=== PATIENT | female | born 1960 | race Caucasian/White ===

== ENCOUNTER 2024-07-09 08:09 | Outpatient (AMB) | payer OTHER, SELFPAY ==
--- NOTE | 2024-07-09 08:15 | AM.OFFWIN_ITS ---
Intake Vital Signs 07/09/24 08:17 Weight 212 lb BP 110/72 Blood Pressure Location Lt brachial Position Sitting Pulse 64 Pulse Source Pulse Oximeter Temp 98.4 F Temp Source Oral Pulse Oximetry (%) 97 Oxygen Delivery Method Room Air Intake Visit Reasons: [employer] cold symptoms Intake Note: Patient here for throat pain when coughing, chest tightness/burning sensation that has been present for a couple of days. Patient Tobacco Use Status: Never used Tobacco Allergies Sulfa (Sulfonamide Antibiotics) Adverse Reaction (Intermediate, Verified 07/09/24 08:19) Swelling sulfamethoxazole [From Bactrim] Adverse Reaction (Mild, Verified 07/09/24 08:19) GI upset trimethoprim [From Bactrim] Adverse Reaction (Mild, Verified 07/09/24 08:19) GI upset Do you need a note to return to daycare/school/sports/work: Yes HPI HPI Comments History of Present Illness Details History - The patient is a 63-year-old female pr esenting with cough and chest heaviness starting yesterday. - Noticed heaviness in the chest and thr oat soreness, intensified by coughing. - Previously attempted relief with three Advil, with some notable improvement. - Cough persists despite using lozenges overnight and morning, providing minimal relief. - History of asthma managed with caffein e and occasional clinical interventions. - Utilizes an albuterol inhaler as neede d. - Reports seasonal allergies, infrequent use of Claritin. - Denies fever, sinus, head, or ear pain , not a current smoker - Denies history of asthma or COPD Physical Exam General: Cooperative, healthy appearing, comfortable and no acute distress Orientation/consciousness: Patient oriented x3 Limitations: No limitations Head: Normal to inspection Ears: Hearing grossly normal bilaterally, external ears normal and TM's normal bilaterally Nose: Normal external nose present, Normal nares present and No nasal discharge present Face and sinus: Normal facial exam and Yes sinuses nontender Mouth: Normal oral and palatal mucosa present and moist mucous membranes Throat: Yes tonsils normal, Yes uvula midline. Posterior oropharynx erythema with cobblestoning Eyes: Appearance normal, both eyes and all related structures Neck: Normal visual inspection Respiratory: Clear to auscultation bilaterally. Normal respiratory effort, able to speak in complete sentences, Actively coughing, no respiratory distress, not tachypneic, no tripod positioning and no use of accessory muscles Cardiovascular: Regular rate and rhythm. Normal S1 and S2 Skin: No rashes or lesions noted Neuro: Patient oriented x3 Extremities: Normal to inspection and Yes no clubbing, cyanosis or edema PFSH Social History Patient Tobacco Use Status: Never used Tobacco Review of Systems Const All systems reviewed & are unremarkable except as noted in HPI and below Physical Exam Vital Signs: Last Vital Signs Temp 98.4 F 07/09/24 08:17 Pulse 64 07/09/24 08:17 BP 110/72 07/09/24 08:17 Pulse Ox 97 07/09/24 08:17 Oxygen Delivery Method Room Air 07/09/24 08:17 Assessment & Plan Assessment & Plan (1) URI, acute: Code(s): J06.9 - Acute upper respiratory infection, unspecified Plan: VSS, pt well appearing and PE unremarkable. Likely allergies and a viral illness. I will prescribe an albuterol inhaler for symptomatic control of asthma, to be used as needed every four to six hours. The patient is advised to restart Claritin to manage allergic symptoms contributing to pharyngitis. For cough, a suppressant is recommended at night to facilitate sleep, while expectoration is encouraged during waking hours. Increased fluid intake will help thin respiratory secretions, and smoking cessation is advised to improve overall respiratory function. Honey in tea may be used for supportive relief. Patient was informed and verbally consented to the use of an ambient scribe for clinic note documentation during this visit Medications: New albuterol sulfate 90 mcg/actuation 2 puffs inhalation Q6H PRN 8.5 grams 0RF shortness of breath or wheezing or cough benzonatate 200 mg PO BEDTIME PRN 10 caps 0RF cough Coding Level of Care Code New Pt Level 3 (05712) Diagnoses URI, acute J06.9
[2024-07-09 08:17] VITALS: BP 110/72; PULSE 64; TEMP 36.9; O2SAT 97
== END 2024-07-09 08:39 | disposition home or self-care (01) ==
PROVIDERS: Visit Provider Physician Assistant
DX: J06.9 Acute upper respiratory infection, unspecified (principal)

== ENCOUNTER → 2024-07-09 08:09 | Outpatient (BNVA) | payer OTHER, SELFPAY | PROVIDERS: Visit Provider Physician Assistant ==

== ENCOUNTER 2024-11-11 17:24 | Emergency (ER) | payer OTHER, SELFPAY ==
--- NOTE | ~2024-11-11 | XR_ITS ---
CLINICAL HISTORY: sob Two views of the chest. COMPARISON: None provided. FINDINGS: Normal heart and mediastinal contours. No consolidation. No pleural effusion or pneumothorax. No acute fracture. IMPRESSION: 1. No consolidation. This document has been electronically signed by: Ermias Vaca MD on 11/11/2024 19:18:18
[2024-11-11 17:28] VITALS: BP 159/82; PULSE 92; RESP 18; TEMP 37.2; O2SAT 98; BMI 39.0
--- NOTE | 2024-11-11 17:31 | ECG_ITS ---
Test Reason : Blood Pressure : */* mmHG Vent. Rate : 84 BPM Atrial Rate : 84 BPM P-R Int : 144 ms QRS Dur : 84 ms QT Int : 362 ms P-R-T Axes : 52 2 22 degrees QTcB Int : 427 ms Normal sinus rhythm Minimal voltage criteria for LVH, may be normal variant ( R in aVL ) Borderline ECG No previous ECGs available Referred By: Cammie Borges Electronically Signed By: Zaire Diallo
--- NOTE | 2024-11-11 17:33 | ED.ABDPAIN ---
HPI - Abdominal Pain General Chief Complaint: Abdominal Pain Stated Complaint: SOB, lower extremity pain, lightheadness Time Seen by Provider: 11/11/24 21:45 Related Data Previous Rx's ?Medication ?Instructions ?Recorded albuterol sulfate 90 mcg/actuation 2 puff inhalation Q6H PRN 07/09/24 aerosol inhaler shortness of breath or wheezing or cough #8.5 grams benzonatate 200 mg capsule 200 mg PO BEDTIME PRN cough #10 07/09/24 caps Allergies Allergy/AdvReac Type Severity Reaction Status Date / Time gluten Allergy Unknown Verified 11/11/24 17:30 Sulfa (Sulfonamide AdvReac Intermediate Swelling Verified 07/09/24 08:19 Antibiotics) sulfamethoxazole (From AdvReac Mild GI upset Verified 07/09/24 08:19 Bactrim) trimethoprim (From Bactrim) AdvReac Mild GI upset Verified 07/09/24 08:19 PMFSH Social History Social History Patient Tobacco Use Status: Never used Tobacco Advance Directives: No Advance Directives Information Provided: Yes Do you have a plan to hurt others: No Plan Physical Exam ED Vital Signs: Vital Signs - 24 hr 11/11/24 17:28 Temperature 98.9 F Pulse Rate 92 Respiratory Rate 18 Blood Pressure 159/82 H Pulse Oximetry 98 BMI result Body Mass Index 39.0 Course Course Course Narrative: This is a Rapid Medical Examination (RME) performed by Re Borges PA-C in triage. Full HPI, ROS, assessment and treatment plan per primary provider in the Main ED. Hx: 64 yo F here for eval of lower abd pain, cough, sob. reports dizziness x10 days that felt like her vertigo - this has since resolved. Plan: labs, ua, cxr Medical Decision Making Medical Decision Making MDM Narrative: 10:01 PM 11/11/2024 ([address]): Shortly after signing up for the patient this provider was just informed by RN that the patient left without treatment complete, stating she could not stay any longer. Patient left prior to being seen by this provider, this provider had no patient contact. Lab Data 11/11/24 17:52 11/11/24 17:52 Labs: Lab Results 11/11/24 Range/Units 17:52 WBC 10.6 (4.8-10.8) X10*3/uL RBC 4.12 L (4.20-5.50) X10*6/uL Hgb 12.8 (12.0-16.0) g/dl Hct 37.0 (37.0-47.0) % MCV 89.8 (80.0-98.0) fL MCH 31.1 (27.0-33.0) pg MCHC 34.6 (31.0-35.0) g/dl RDW 13.1 (11.0-16.0) % Plt Count 249 (160-400) X10*3/uL MPV 9.4 (9.4-12.3) fL Immature Gran % (Auto) 0.4 (0.0-0.4) % Neut % (Auto) 69.9 (45-73) % Lymph % (Auto) 20.1 (20-40) % Spencer % (Auto) 6.9 (2-11) % Eos % (Auto) 2.2 (0-4) % Baso % (Auto) 0.5 (0-2) % Lymph # (Auto) 2.1 (1.2-4.9) X10*3/uL Spencer # (Auto) 0.7 (0.1-1.2) X10*3/uL Eos # (Auto) 0.2 (0.0-0.4) X10*3/uL Baso # (Auto) 0.1 (0.0-0.2) X10*3/uL Abs Immat Gran (auto) 0.04 H (0.00-0.03) X10*3/uL Absolute Neuts (auto) 7.4 (2.0-8.3) x10*3/uL Absolute Nucleated RBC 0.000 (0.0-0.012) X10*3/uL Nucleated RBC % (auto) 0.0 (0.0-0.2) /100WBC Sodium 142 (135-145) mmol/L Potassium 3.7 (3.3-5.1) mmol/L Chloride 107 (96-108) mmol/L Carbon Dioxide 28 (22-29) mmol/L Anion Gap 11 L (12-20) BUN 11 (9-16) mg/dL Creatinine 0.68 (0.5-1.4) mg/dL Estim Creat Clear Calc 95.5 Estimated GFR > 60 Random Glucose 112 (60-115) mg/dL Calcium 9.4 (8.4-10.2) mg/dL Magnesium 2.2 (1.6-2.6) mg/dL Total Bilirubin 0.7 (0.0-1.0) mg/dL AST 25 (5-31) U/L ALT 28 (0-31) U/L Alkaline Phosphatase 80 (39-117) U/L Troponin I High Sens < 2.7 (<3.5-17.0) ng/L Total Protein 7.4 (6.5-8.0) g/dL Albumin 4.3 (3.5-5.0) g/dL Lipase 12 (8-78) U/L COVID-19 (AMEENA) Negative (Negative) COVID-19 Clin Com See Note Influenza Type A (DIEGO) Negative (Negative) Influenza Type B (DIEGO) Negative (Negative) Influenza A & B Note See Note Discharge Plan Discharge Clinical Impression: Cough Patient Disposition: Left W/O Completing Treatment Prescriptions: No Action albuterol sulfate 90 mcg/actuation HFA aerosol inhaler 2 puff inhalation Q6H PRN (Reason: shortness of breath or wheezing or cough) Qty: 8.5 0RF benzonatate 200 mg capsule 200 mg PO BEDTIME PRN (Reason: cough) Qty: 10 0RF Discharge Date/Time: 11/11/24 22:10
[2024-11-11 17:58] LABS: MANUAL DIFF FLAG NO
[2024-11-11 17:59] LABS: Hematocrit 37.0 % (37.0-47.0); Hemoglobin 12.8 g/dl (12.0-16.0); Imm Gran Abs Auto 0.04 X10*3/uL (0.00-0.03); Imm Gran Pct Auto 0.4 % (0.0-0.4); Lymphocytes Absolute Auto 2.1 X10*3/uL (1.2-4.9); Mean Corpuscular HGB Conc 34.6 g/dl (31.0-35.0); Mean Corpuscular Hemoglobin 31.1 pg (27.0-33.0); Mean Corpuscular Volume 89.8 fL (80.0-98.0); NRBC Abs Auto 0.000 X10*3/uL (0.0-0.012); NRBC Pct Auto 0.0 /100WBC (0.0-0.2); Platelet Count 249 X10*3/uL (160-400); Red Blood Count 4.12 X10*6/uL (4.20-5.50); White Blood Count 10.6 X10*3/uL (4.8-10.8)
[2024-11-11 18:21] LABS: Alanine Aminotransferase 28 U/L (0-31); Albumin Level 4.3 g/dL (3.5-5.0); Alkaline Phosphatase 80 U/L (39-117); Anion Gap 11 (12-20); Aspartate Amino Transferase 25 U/L (5-31); Blood Urea Nitrogen 11 mg/dL (9-16); Calcium 9.4 mg/dL (8.4-10.2); Carbon Dioxide 28 mmol/L (22-29); Chloride 107 mmol/L (96-108); Creatinine Clr Calc Pharmacy 95.5; Estimated Glomerular Filt Rate > 60; Lipase 12 U/L (8-78); Magnesium 2.2 mg/dL (1.6-2.6); Potassium 3.7 mmol/L (3.3-5.1); Sodium 142 mmol/L (135-145); Total Protein 7.4 g/dL (6.5-8.0)
[2024-11-11 18:24] LABS: COVID-19 Test Negative (Negative); IDNOW Serial# 152EDE1D; IDNOW Serial# 16C4AD1C; Influenza B2 Negative (Negative)
[2024-11-11 18:48] LABS: Troponin-I High Sensitivity < 2.7 ng/L (<3.5-17.0)
--- NOTE | 2024-11-11 21:31 | PC.NURSE ---
Assumed care of pt, presents with lower abd pain, pt states the pain started on 11/09/2024, pt feels pressure in the vaginal area, pt states pain feels like cramping and pressure, aaox4, sister at bedside
--- NOTE | 2024-11-11 21:53 | PC.NURSE ---
Pt stated that she wants to leave and does not want to wait for the doctor, states that it is taking to long and does want wait
== END 2024-11-11 22:10 | disposition left against medical advice (07) ==
PROVIDERS: Physician Assistant Medical; Emergency Provider Emergency Medicine
DX: R05.9 Cough, unspecified (principal); R10.2 Pelvic and perineal pain; R06.02 Shortness of breath; R42 Dizziness and giddiness; R94.31 Abnormal electrocardiogram [ECG] [EKG]; Z11.52 Encounter for screening for COVID-19; Z79.899 Other long term (current) drug therapy
CPT/HCPCS: 36415; 71046; 80053; 83690; 83735; 84484; 85025; 87502; 87635; 93005; 99283; 99284

== ENCOUNTER → 2024-11-11 17:31 | Outpatient (BNV) | payer OTHER, SELFPAY | PROVIDERS: Emergency Provider Emergency Medicine; Visit Provider Internal Medicine Cardiovascular Disease | DX: R06.02 Shortness of breath (principal) | CPT/HCPCS: 93010 ==

== ENCOUNTER → 2024-11-11 17:34 | Outpatient (BNV) | payer OTHER, SELFPAY | PROVIDERS: Visit Provider Radiology Diagnostic Radiology | DX: R06.02 Shortness of breath (principal) | CPT/HCPCS: 71046 ==